=== PATIENT | male | born 2000 | race Caucasian/White ===

== ENCOUNTER 2020-01-30 00:19 | Emergency (ER) | payer SELFPAY ==
[~2020-01-30] VITALS: Ht 185.4 cm; Wt 74.0 kg
[2020-01-30 01:36] VITALS: BP 110/62
--- NOTE | 2020-01-30 01:37 | NUR ---
pt a/o x4 and requested to be discharged so he can go to retirement. provider notified
== END 2020-01-30 01:52 | disposition home or self-care (01) ==
LOC: ED 01:46
DX: F10.120 Alcohol abuse with intoxication, uncomplicated (principal); R45.1 Restlessness and agitation; Z72.9 Problem related to lifestyle, unspecified; Y90.9 Presence of alcohol in blood, level not specified
CPT/HCPCS: 99283